=== PATIENT | male | born 1980 | race African-American/Black ===

== ENCOUNTER 2017-04-23 01:58 | Observation (INO) | payer MEDICAID ==
[~2017-04-23] VITALS: Ht 170.2 cm; Wt 67.2 kg
[~2017-04-23 01:58] MED LIST: MULT-26 PO
[2017-04-23 03:06] LABS: ASPARTATE AMINO TRANSFERASE 24 U/L (15-37); BLOOD UREA NITROGEN 9 mg/dL (7-18)
[2017-04-23 03:12] LABS: ACETAMINOPHEN < 2 mcg/mL (10-30)
[2017-04-23 03:14] LABS: HEMATOCRIT 38.5 % (39.2-51.8); WHITE BLOOD COUNT 8.1 x10^3/uL (3.4-10)
[2017-04-23 03:17] LABS: DAU SCREEN DISCLAIMER
[2017-04-23] MEDS ORDERED: ZIPRASIDONE 20MG CAPSULE PO SCH (09:00)
[2017-04-23] MEDS ORDERED: OLANZAPINE 10 MG TABLET PO SCH (10:30)
[2017-04-23] MEDS ORDERED: ONDANSETRON ODT 4 MG PO PRN (10:30)
[2017-04-23 11:25] VITALS: BP 109/68
[2017-04-23] MEDS ORDERED: LORazepam INTENSOL 2 MG/ML PO PRN (12:30)
[2017-04-23] MEDS ORDERED: LORazepam 2 MG/ML, 1ML IM PRN (12:30)
[2017-04-23] MEDS ORDERED: HALOPERIDOL 5 MG TABLET PO PRN (12:30)
[2017-04-23] MEDS ORDERED: DIPHENHYDRAMINE 50 MG CAPSULE PO PRN (12:30)
[2017-04-23] MEDS ORDERED: DIPHENHYDRAMINE 50 MG/ML, 1ML IM PRN (12:30)
[2017-04-23] MEDS ORDERED: HALOPERIDOL 5 MG/ML IM PRN (12:30)
[2017-04-23] MEDS: NICOTINE 14MG/24 HR PATCH.TD24 TD SCH (12:43)
[2017-04-23] MEDS ORDERED: OLAN20TA3 PO (12:56)
[2017-04-23] MEDS ORDERED: GABA100C PO (12:57)
[2017-04-23] MEDS ORDERED: ZIPRASIDONE 20MG CAPSULE ONE (19:16)
[2017-04-23 19:50] VITALS: BP 108/68
[2017-04-23] MEDS: ZIPRASIDONE 20MG CAPSULE PO SCH (21:47)
[2017-04-24 08:17] VITALS: BP 99/62
[2017-04-24] MEDS: ZIPRASIDONE 20MG CAPSULE PO SCH ×2 (08:20→20:34)
[2017-04-24] MEDS: NICOTINE 14MG/24 HR PATCH.TD24 TD SCH (12:11)
[2017-04-24 19:19] VITALS: BP 108/65
[2017-04-24] MEDS: ACETAMINOPHEN 325 MG TABLET PO PRN (20:34)
[2017-04-24] MEDS ORDERED: HALOPERIDOL 5 MG TABLET PO PRN (22:30)
[2017-04-24] MEDS ORDERED: ONDANSETRON ODT 4 MG PO PRN (22:30)
[2017-04-24] MEDS ORDERED: LORazepam 2 MG/ML, 1ML IM PRN (22:30)
[2017-04-24] MEDS ORDERED: DIPHENHYDRAMINE 50 MG/ML, 1ML IM PRN (22:30)
[2017-04-24] MEDS ORDERED: HALOPERIDOL 5 MG/ML IM PRN (22:30)
[2017-04-25] MEDS: ACETAMINOPHEN 325 MG TABLET PO PRN (03:38)
[2017-04-25 08:00] VITALS: BP 110/74
[2017-04-25] MEDS: ZIPRASIDONE 20MG CAPSULE PO SCH ×2 (08:20→20:15)
[2017-04-25] MEDS: NICOTINE 14MG/24 HR PATCH.TD24 TD SCH (12:37)
[2017-04-25 19:50] VITALS: BP 119/74
[2017-04-26 07:26] VITALS: BP 126/75
[2017-04-26] MEDS: ZIPRASIDONE 20MG CAPSULE PO SCH ×2 (09:23→20:43)
[2017-04-26] MEDS: NICOTINE 14MG/24 HR PATCH.TD24 TD SCH (12:48)
[2017-04-26 19:35] VITALS: BP 109/70
[2017-04-27 07:15] VITALS: BP 118/77
[2017-04-27] MEDS: NICOTINE 14MG/24 HR PATCH.TD24 TD SCH (07:53)
[2017-04-27] MEDS: ZIPRASIDONE 20MG CAPSULE PO SCH ×2 (07:53→21:45)
[2017-04-27] MEDS: DIPHENHYDRAMINE 50 MG CAPSULE PO PRN ×2 (15:57→21:50)
[2017-04-28] MEDS: ZIPRASIDONE 20MG CAPSULE PO SCH (08:29)
[2017-04-28] MEDS: DIPHENHYDRAMINE 50 MG CAPSULE PO PRN (08:40)
[2017-04-28 09:00] VITALS: BP 108/74
[2017-04-28] MEDS: NICOTINE 14MG/24 HR PATCH.TD24 TD SCH (12:23)
[2017-04-28] MEDS ORDERED: ZIPR20CA2 PO (15:12)
== END 2017-04-28 15:25 | disposition home or self-care (01) ==
LOC: ED 02:50 → EDIP 08:11 → 3E 11:18
PROVIDERS: ADMIT Internal Medicine; ATTEND Internal Medicine
DX: R45.851 Suicidal ideations (principal); F23 Brief psychotic disorder; D64.9 Anemia, unspecified; F32.9 Major depressive disorder, single episode, unspecified; F20.0 Paranoid schizophrenia; Z80.3 Family history of malignant neoplasm of breast; Z87.891 Personal history of nicotine dependence; Z91.14 Patient's other noncompliance with medication regimen; Z91.5 Personal history of self-harm
CPT/HCPCS: 36415; 80053; 80307; 80329; 83540; 83550; 84439; 84443; 85025; 93005; 99285; G0378; G0479; G0480

== ENCOUNTER 2018-10-25 13:13 | Inpatient (IN) | payer MEDICAID, OTHER ==
[~2018-10-25] VITALS: Ht 170.2 cm; Wt 66.0 kg
[~2018-10-25 13:13] MED LIST changes: +GABA100C PO; +OLAN20TA3 PO; +ZIPR20CA2 PO
--- NOTE | 2018-10-25 14:11 | NUR ---
PT IN ROOM AND ROOM SECURED. 1 BAG OF BELONGINGS IN LOCKER. PT IN GOWN WITH WARM BLANKETS. SITTER AT BEDSIDE. LUNCH OFFERED AND PT DECLINED AT THIS TIME. PT ENCOURAGED TO BRING ANY WANTS OR CONCERNS UP TO THIS RN. [facility] SENT TO LAB AND AWAITING FURTHER ORDERS.
[2018-10-25 14:19] LABS: ALBUMIN 3.8 g/dL (3.4-5.0); ANION GAP 10 mmol/L (5-15); CALCIUM 8.4 mg/dL (8.5-10.1); CHLORIDE 111 mmol/L (98-107)
[2018-10-25 14:21] LABS: AMPHETAMINE SCREEN, URINE Negative (Negative); BARBITURATE SCREEN, URINE Negative (Negative); BENZODIAZEPINE SCREEN, URINE Negative (Negative); CANNABINOID SCREEN, URINE Negative (Negative); COCAINE SCREEN, URINE Negative (Negative); METHADONE SCREEN, URINE Negative (Negative); OPIATE SCREEN, URINE Negative (Negative)
[2018-10-25 14:25] LABS: ALANINE AMINOTRANSFERASE 23 U/L (12-78); ALKALINE PHOSPHATASE 66 U/L (45-117); BILIRUBIN,TOTAL 0.4 mg/dL (0.2-1.0); CREATININE 1.15 mg/dL (0.7-1.3); TOTAL PROTEIN 6.8 g/dL (6.4-8.2)
[2018-10-25 14:27] LABS: ACETAMINOPHEN < 2 mcg/mL (10-30)
[2018-10-25 14:29] LABS: BASOPHILS # (AUTO) 0.03 x10^3/uL (0-0.1); BASOPHILS % (AUTO) 0 % (0-1); EOSINOPHILS # (AUTO) 0.33 x10^3/uL (0-0.4); EOSINOPHILS % (AUTO) 5 % (1-7); LYMPHOCYTES # (AUTO) 2.55 x10^3/uL (1-3.4); LYMPHOCYTES % (AUTO) 37 % (22-44); MD NO; MEAN CORPUSCULAR HEMOGLOBIN 30.4 pg (27.5-34.5); MEAN CORPUSCULAR VOLUME 89.4 fL (81-97); MEAN PLATELET VOLUME 8.4 fL (7.4-10.4); MONOCYTES # (AUTO) 0.45 x10^3/uL (0.2-0.8); MONOCYTES % (AUTO) 7 % (2-9); NEUTROPHILS # (AUTO) 3.54 x10^3/uL (1.8-6.8); NEUTROPHILS % (AUTO) 51 % (42-75); PLATELET COUNT 290 x10^3/uL (130-400); RED BLOOD COUNT 4.44 x10^6/uL (4.38-5.82); RED CELL DISTRIBUTION WIDTH 13.3 % (9.4-14.8)
--- NOTE | 2018-10-25 16:06 | NUR ---
THOMAS FROM [facility] CALLED, ALL QUESTIONS ANSWERED REGARD PT. [facility] WILL ACCEPT WHEN ORDERS ARE IN.
[2018-10-25] MEDS ORDERED: HALOPERIDOL 5 MG/ML IM PRN (16:30)
[2018-10-25] MEDS ORDERED: HALOPERIDOL 1 MG TABLET PO PRN (16:30)
--- NOTE | 2018-10-25 17:03 | NUR ---
ASSUMED CARE OF PT WHILE PRIMARY RN AT LUNCH. CALLED AND GAVE REPORT TO EMILY. PT WILL BE TRANSFERRED TO FLOOR.
[2018-10-25 17:30] VITALS: BP 100/60
[2018-10-25 18:03] VITALS: BP 100/60
[2018-10-26 00:01] VITALS: BP 93/57
[2018-10-26 07:10] VITALS: BP 92/58
[2018-10-26 19:28] VITALS: BP 86/47
[2018-10-27 07:55] VITALS: BP 100/59
[2018-10-27] MEDS: OLANZAPINE 5 MG TABLET PO SCH ×2 (10:19→20:02)
[2018-10-27 19:03] VITALS: BP 116/70
[2018-10-28 08:05] VITALS: BP 107/73
[2018-10-28] MEDS: OLANZAPINE 5 MG TABLET PO SCH ×2 (08:16→20:46)
[2018-10-28 20:14] VITALS: BP 93/49
[2018-10-29 08:00] VITALS: BP 91/56
[2018-10-29] MEDS: OLANZAPINE 5 MG TABLET PO SCH ×2 (08:04→21:06)
[2018-10-29] MEDS ORDERED: HALOPERIDOL 5 MG TABLET ONE (17:33)
[2018-10-29] MEDS: HALOPERIDOL 5 MG TABLET PO PRN ×2 (17:34→21:07)
[2018-10-29 21:13] VITALS: BP 109/62
[2018-10-30] MEDS: OLANZAPINE 5 MG TABLET PO SCH ×2 (07:48→19:53)
[2018-10-30] MEDS: HALOPERIDOL 5 MG TABLET PO PRN ×3 (07:48→19:53)
[2018-10-30 08:00] VITALS: BP 107/65
[2018-10-30 19:59] VITALS: BP 97/62
[2018-10-31 07:55] VITALS: BP 97/63
[2018-10-31] MEDS: OLANZAPINE 5 MG TABLET PO SCH ×2 (10:16→20:18)
[2018-10-31 12:03] LABS: BASOPHILS # (AUTO) 0.06 x10^3/uL (0-0.1); BASOPHILS % (AUTO) 1 % (0-1); EOSINOPHILS # (AUTO) 0.39 x10^3/uL (0-0.4); EOSINOPHILS % (AUTO) 6 % (1-7); LYMPHOCYTES # (AUTO) 2.25 x10^3/uL (1-3.4); LYMPHOCYTES % (AUTO) 34 % (22-44); MD SCAN; MEAN CORPUSCULAR HEMOGLOBIN 30.8 pg (27.5-34.5); MEAN CORPUSCULAR HGB CONC 34.2 g/dL (33.2-36.2); MEAN PLATELET VOLUME 8.3 fL (7.4-10.4); MONOCYTES # (AUTO) 0.45 x10^3/uL (0.2-0.8); MONOCYTES % (AUTO) 7 % (2-9); NEUTROPHILS # (AUTO) 3.51 x10^3/uL (1.8-6.8); NEUTROPHILS % (AUTO) 53 % (42-75); PLATELET COUNT 260 x10^3/uL (130-400); RED BLOOD COUNT 4.63 x10^6/uL (4.38-5.82); RED CELL DISTRIBUTION WIDTH 13.6 % (9.4-14.8)
[2018-10-31 12:49] LABS: HEMOGLOBIN A1C 5.7 % (4.2-6.3)
[2018-10-31] MEDS: NICOTINE 14MG/24 HR PATCH.TD24 TD SCH (16:38)
[2018-10-31 20:05] VITALS: BP 126/69
[2018-10-31] MEDS: HALOPERIDOL 5 MG TABLET PO PRN (20:18)
[2018-11-01 07:55] VITALS: BP 93/59
[2018-11-01] MEDS: OLANZAPINE 5 MG TABLET PO SCH ×2 (08:14→20:13)
[2018-11-01] MEDS: NICOTINE 14MG/24 HR PATCH.TD24 TD SCH (16:44)
[2018-11-01 19:14] VITALS: BP 116/62
[2018-11-02] MEDS: HALOPERIDOL 5 MG TABLET PO PRN ×2 (00:36→08:46)
[2018-11-02 08:00] VITALS: BP 108/70
[2018-11-02] MEDS: OLANZAPINE 5 MG TABLET PO SCH (08:46)
[2018-11-02] MEDS ORDERED: NICO-486 TD (11:50)
[2018-11-02] MEDS ORDERED: OLAN5TAB9 PO (11:50)
== END 2018-11-02 13:00 | disposition home or self-care (01) | DRG 885 ==
LOC: ED 16:09 → EDIP 16:10 → ED 16:21 → 2N 17:23
PROVIDERS: ADMIT Hospitalist; ATTEND Hospitalist
DX: F33.3 Major depressive disorder, recurrent, severe with psychotic symptoms (principal); R45.851 Suicidal ideations; R45.850 Homicidal ideations; D64.9 Anemia, unspecified; F41.9 Anxiety disorder, unspecified; Z91.14 Patient's other noncompliance with medication regimen; Z91.5 Personal history of self-harm
CPT/HCPCS: 36415; 80053; 80307; 80329; 83036; 84443; 85025; 99285; G0378; G0480